=== PATIENT | male | born 1950 | race Caucasian/White ===

== ENCOUNTER 2019-08-29 09:13 | Outpatient (CLI) | payer MEDICARE, SELFPAY ==
--- NOTE | ~2019-08-29 | XR_ITS ---
XR lumbar spine 2-3V 08/29/2019 09:31 Indication: Low back pain Procedure: 4 views lumbar spine Comparison: 03/01/2013 Findings: There is disc narrowing at all lumbar levels. There is dextroscoliosis centered at L1. Ther e is moderate multilevel facet hypertrophy of the mid and lower lumbar spine. Pedicles intact. No kasey dence for spondylolisthesis. No acute fracture or traumatic malalignment. There is atherosclerosis of the aorta with fusiform aortic aneurysm measuring 3.5 cm. Impression: 1: Severe lumbar spondylosis with dextroscoliosis. 2: Fusiform abdominal aortic aneurysm measuring 3.5 cm AP dimension. Reviewed, dictated and finalized at location A. Impression: 1: Severe lumbar spondylosis with dextroscoliosis. 2: Fusiform abdominal aortic aneurysm measuring 3.5 cm AP dimension.
== END 2019-08-29 09:14 | disposition home or self-care (01) ==
LOC: ANHIMG 09:18
PROVIDERS: PCP Family Medicine; Visit Provider Family Medicine
DX: G89.29 Other chronic pain (principal); M54.40 Lumbago with sciatica, unspecified side; M47.816 Spondylosis without myelopathy or radiculopathy, lumbar region; M41.86 Other forms of scoliosis, lumbar region; I71.4 Abdominal aortic aneurysm, without rupture
CPT/HCPCS: 72100

== ENCOUNTER 2019-09-11 07:54 | Outpatient (CLI) | payer MEDICARE, SELFPAY ==
--- NOTE | ~2019-09-11 | US_ITS ---
EXAMINATION: US aorta DATE: 09/11/2019 09:09 INDICATION: Abdominal aortic aneurysm undergoing TECHNIQUE: Grayscale, color Doppler, and pulsed Doppler images of the aorta and common iliac arteries were obtained. COMPARISON: None. FINDINGS: The proximal aorta measures 2.9 cm AP. The mid aorta measures 2.8 cm. The distal aorta measures 3.2 c m tapering to 2.1 cm at the bifurcation. The right common iliac artery measures 10 mm. The left commo n iliac artery measures 9 mm. IMPRESSION: 1. Ectatic infrarenal abdominal aorta measuring up to 3.2 cm in maximal diameter. Reviewed, dictated and finalized at location A. IMPRESSION: 1. Ectatic infrarenal abdominal aorta measuring up to 3.2 cm in maximal diamete r.
== END 2019-09-11 07:55 | disposition home or self-care (01) ==
PROVIDERS: PCP Family Medicine; Visit Provider Internal Medicine Cardiovascular Disease
DX: I71.4 Abdominal aortic aneurysm, without rupture (principal)
CPT/HCPCS: 76775

== ENCOUNTER 2019-10-03 07:42 | Outpatient (CLI) | payer MEDICARE, SELFPAY ==
--- NOTE | ~2019-10-03 | MR_ITS ---
EXAMINATION: MR lumbar spine wo con DATE: 10/03/2019 08:58 INDICATION: Lumbago with sciatica, unspecified side. TECHNIQUE: Magnetic resonance imaging (MRI) of the lumbar spine was performed without intravenous con trast. Sequences included sagittal T2-weighted FSE, sagittal T2-weighted FS FSE, sagittal T1-weighted FSE, and axial T2-weighted FSE. COMPARISON: Lumbar spine MRI 04/04/2013 FINDINGS: There is 16 degrees dextroscoliosis of thoracic lumbar spine. There is 4 mm retrolisthesis of T12 on L1 and 3 mm retrolisthesis of L1 on L2 and L2 on L3. There is mild chronic anterior wedging of T10-L1 vertebral bodies with Schmorl's nodes. There is moderately decreased disc height at T12-L1 , severely decreased disc height at L1-L2, moderately decreased disc height at L2-L3 and L3-L4, and s everely decreased disc height at L4-L5. There is ligamentum flavum hypertrophy at the disc levels fro m L2-L3 through L4-L5. The distal spinal cord signal intensity is normal. The conus medullaris is at T12-L1. There is a 3.0 cm these remain aneurysm of infrarenal aorta. The following disc levels are sp ecifically discussed: T12-L1: The disc is bulging. There is moderate right and severe left facet joint osteoarthritis. Ther e is mild bilateral neural foraminal stenosis. There is mild central canal stenosis. L1-L2: The disc is bulging and has an annular fissure. There is severe bilateral facet joint osteoart hritis. There is moderate bilateral neural foraminal stenosis. There is moderate central canal stenos is. L2-L3: The disc is bulging and has an annular fissure. There is severe bilateral facet joint osteoart hritis. There is mild bilateral neural foraminal stenosis. There is mild central canal stenosis. L3-L4: The disc is bulging and has an annular fissure. There is severe bilateral facet joint osteoart hritis. There is moderate right and mild left neural foraminal stenosis. There is severe central arlene l stenosis. L4-L5: The disc is bulging and has an annular fissure. There is severe bilateral facet joint osteoart hritis. There is moderate bilateral neural foraminal stenosis. There is mild central canal stenosis. L5-S1: The disc is bulging. There is severe bilateral facet joint osteoarthritis. There is mild bilat eral neural foraminal stenosis. There is mild central canal stenosis. IMPRESSION: 1. Severe lumbar spondylosis, worsened from 04/04/2013. 2. Thoracolumbar dextroscoliosis. Reviewed, dictated and finalized at location A.
== END 2019-10-03 07:43 | disposition home or self-care (01) ==
PROVIDERS: PCP Family Medicine; Visit Provider Family Medicine
DX: G89.29 Other chronic pain (principal); M43.06 Spondylolysis, lumbar region; M54.40 Lumbago with sciatica, unspecified side; M47.896 Other spondylosis, lumbar region
CPT/HCPCS: 72148

== ENCOUNTER 2020-05-09 10:25 | Outpatient (CLI) | payer MEDICARE, SELFPAY ==
--- NOTE | ~2020-05-09 | US_ITS ---
EXAMINATION: US thyroid DATE: 05/09/2020 15:04 INDICATION: Thyroid nodule TECHNIQUE: Multiple ultrasound images of the thyroid were obtained. COMPARISON: None. FINDINGS: The right thyroid lobe measures 5.1 x 1.9 x 2.3 cm. The left thyroid lobe measures 2.6 x 1.8 x 1.5 c m. 1.4 cm predominantly solid wider than tall very hypoechoic nodule with smooth margins and echogen ic foci in the mid right thyroid lobe. (TI-RADS 5, highly suspicious , FNA if >=1.0 cm, annual follow up is >0.5 cm). Smaller similar appearing nodule measuring 9 mm in maximal diameter at the inferior r ight thyroid. There are a few additional 6 mm or smaller likely benign anechoic cystic nodules in bot h the left and right thyroid lobes. There is normal echotexture, echogenicity and vascular flow throu ghout the remainder of the thyroid gland. IMPRESSION: 1. Multinodular goiter. Recommend ultrasound-guided biopsy of the largest 1.4 cm TI RADS 5 right thyr oid nodule. Reviewed, dictated and finalized at location A. ENTING CELLARS RECEIVER IMPRESSION: 1. Multinodular goiter. Recommend ultrasound-guided biopsy of the largest 1.4 c m TI RADS 5 right thyroid nodule.
== END 2020-05-09 10:26 | disposition home or self-care (01) ==
PROVIDERS: PCP Family Medicine; Visit Provider Internal Medicine Cardiovascular Disease
DX: E04.2 Nontoxic multinodular goiter (principal)
CPT/HCPCS: 76536

== ENCOUNTER 2020-05-31 08:30 | Outpatient (CLI) | payer MEDICARE, SELFPAY ==
--- NOTE | ~2020-05-31 | CT_ITS ---
EXAMINATION: CT lung screening DATE: 05/31/2020 08:56 INDICATION: Personal history of nicotine dependence, prior smoker with 80 pack year history TECHNIQUE: Computed tomography (CT) of the chest was performed without intravenous contrast. The dose -length product (DLP) was 189.58 mGy-cm. Automated exposure control and iterative reconstruction tech [employer] were employed. COMPARISON: 04/04/2018 FINDINGS: There are tiny 1 to 2 mm nodules of the lungs. A 3 mm nodule is present in the right upper lobe on image 44. There is a 10 mm stable subpleural nodule of the left upper lobe. There is a 16 mm subsolid nodule of the right upper lobe on image 41 which previously measured 11 mm. There is mild em physema. No pleural effusion or pneumothorax is identified. No pathologically enlarged thoracic lymph nodes are identified. The heart size is normal. There are changes of coronary artery bypass grafting . A midline epigastric hernia containing fat is noted. There is moderate thoracic spondylosis. IMPRESSION: 1. Lung-RADS category 2: Benign appearance or behavior. Continue annual screening with noncontrast lo w-dose chest CT in 12 months. Reviewed, dictated and finalized at location A. RITY INTELLIGENCE ANALYST IMPRESSION: 1. Lung-RADS category 2: Benign appearance or behavior. Continue annual screeni ng with noncontrast low-dose chest CT in 12 months.
== END 2020-05-31 08:31 | disposition home or self-care (01) ==
PROVIDERS: PCP Family Medicine; Visit Provider Internal Medicine Pulmonary Disease
DX: Z12.2 Encounter for screening for malignant neoplasm of respiratory organs (principal); Z87.891 Personal history of nicotine dependence
CPT/HCPCS: 71271

== ENCOUNTER 2020-05-31 12:54 | Outpatient (CLI) | payer MEDICARE, SELFPAY ==
--- NOTE | ~2020-05-31 | US_ITS ---
EXAMINATION: US FNA w image guidance DATE: 05/31/2020 14:03 INDICATION: Nontoxic multinodular goiter. TECHNIQUE: The procedure and its benefits and risks were discussed with the patient. Risks specifically discusse d included bleeding. The patient verbalized understanding of the risks and agreed to proceed. The nec k was prepped and draped in the usual sterile manner. 1% lidocaine was used for local anesthesia. 5 passes were made with a 25G needle into the lesion under ultrasound guidance. There were no immedia te complications. FINDINGS: Grayscale ultrasound images demonstrate needles advanced into a 14 mm nodule in right thyroid lobe fo r biopsy. IMPRESSION: 1. Ultrasound-guided fine needle aspiration of a right thyroid nodule. Reviewed, dictated and finalized at location A. TOR HELPER
== END 2020-05-31 12:55 | disposition home or self-care (01) ==
PROVIDERS: PCP Family Medicine; Visit Provider Family Medicine
DX: E04.2 Nontoxic multinodular goiter (principal)
CPT/HCPCS: 10005; 71271; 88173; 88305; 88307

== ENCOUNTER 2021-04-18 08:01 | Outpatient (CLI) | payer MEDICARE, SELFPAY ==
--- NOTE | ~2021-04-18 | CT_ITS ---
EXAMINATION: CT abdomen pelvis wo con EXAM DATE: 04/18/2021 08:22 INDICATION: K43.2 - Incisional hernia without obstruction or gangrene. TECHNIQUE: Spiral CT of the abdomen and pelvis was performed without contrast. Axial, coronal and s agittal images of the abdomen and pelvis were reviewed. The dose-length product (DLP) for this exami nation was 978.48 mGy-cm. The exposure was tailored according to patient size (auto mA exposure cont rol), and iterative reconstruction (ASIR) was used as additional dose reduction technique. There is no prior study for comparison. FINDINGS: The liver, spleen, adrenal glands and pancreas are unremarkable. Gallbladder is unremarka ble. No biliary obstruction. Bilateral renal hilar calcifications, arterial sclerosis. There is punc patricio 1 mm left inferior calyceal stone. No ureteral stones or hydronephrosis. There is moderate prost atomegaly. There is moderate-sized fat-containing abdominal hernia just below the xiphoid process. There is lar ge left inguinal fat-containing hernia, moderate-sized right inguinal fat-containing hernia. Both of these appear to have direct and indirect components. Small umbilical fat-containing hernia. Some diff use bladder wall thickening, could indicate chronic cystitis. Acute cystitis not excludable. There i s no retroperitoneal or pelvic lymphadenopathy. There is moderate scattered arteriosclerotic diseas e. Mildly aneurysmal mid abdominal aorta at 3.4 cm. The appendix is normal. There is moderate sigmoid predominant colonic diverticulosis. There is no ad jacent inflammatory change to suggest diverticulitis. The stomach and small bowel are unremarkable. There is moderate amount of colonic stool. No free intraperitoneal gas. The heart is normal in si ze. There are no pericardial or pleural effusions. The lung bases are unremarkable. Spondylosis, s uspect severe facet arthropathy, central canal stenosis L3-4 and L4-5, moderate to severe at L1-2 and L2-3 with L2-3 gas-filled synovial cyst from the left facet joint. Mild to moderate lumbar scoliosi s. IMPRESSION: 1. Fat-containing subxiphoid, umbilical, bilateral inguinal hernias. 2. Mildly aneurysmal mid abdominal aorta. 3. Colonic diverticulosis. 4. Advanced lumbar spondylosis. Reviewed, dictated and finalized at location A. CLE OPERATOR
== END 2021-04-18 08:02 ==
PROVIDERS: PCP Family Medicine; Visit Provider Surgery
DX: K43.2 Incisional hernia without obstruction or gangrene (principal); K42.9 Umbilical hernia without obstruction or gangrene; K40.20 Bilateral inguinal hernia, without obstruction or gangrene, not specified as recurrent; I71.4 Abdominal aortic aneurysm, without rupture; K57.90 Diverticulosis of intestine, part unspecified, without perforation or abscess without bleeding; M47.816 Spondylosis without myelopathy or radiculopathy, lumbar region
CPT/HCPCS: 74176

== ENCOUNTER 2021-05-29 10:20 | Outpatient (CLI) | payer MEDICARE, SELFPAY ==
--- NOTE | ~2021-05-29 | US_ITS ---
EXAMINATION: US renal BI EXAM DATE: 05/29/2021 10:44 INDICATION: Chronic Kidney Disease Stage 3B TECHNIQUE: Multiple grayscale and Doppler images of the kidneys were obtained (by a technologist who performed the scan) and subsequently reviewed. There is no prior study for comparison. FINDINGS: Right kidney: There is normal contour and echogenicity. It measures 10.7 x 4.5 x 5.0 centimeters. Th ere is a 1.7 cm cyst. There is no hydronephrosis. Left kidney: There is normal contour and echogenicity. It measures 9.8 x 4.4 x 5.6 centimeters. The re are no focal renal lesions identified. There is no hydronephrosis. Bladder unremarkable. Mild prostatomegaly. IMPRESSION: Small right renal cyst. Mild prostatomegaly. Reviewed, dictated and finalized at location A. OW SHADE INSTALLER
== END 2021-05-29 10:21 | disposition home or self-care (01) ==
LOC: ANHIMG 10:22
PROVIDERS: PCP Family Medicine; Visit Provider Internal Medicine Nephrology
DX: N18.32 Chronic kidney disease, stage 3b (principal); N28.1 Cyst of kidney, acquired; N40.0 Benign prostatic hyperplasia without lower urinary tract symptoms
CPT/HCPCS: 76775

== ENCOUNTER 2021-06-24 10:54 | Outpatient (CLI) | payer MEDICARE, SELFPAY ==
--- NOTE | ~2021-06-24 | CT_ITS ---
EXAMINATION: CT lung screening EXAM DATE: 06/24/2021 11:12 INDICATION: Z87.891 - Personal history of nicotine dependence TECHNIQUE: Spiral low dose CT of the chest without contrast. Axial, coronal and sagittal images were reviewed. The dose-length product (DLP) for this examination was 180.66 mGy-cm. The exposure was t ailored according to patient size (auto mA exposure control), and iterative reconstruction (ASIR) was used as additional dose reduction technique. Comparison is made to prior examination from 05/31/2020. FINDINGS: Several small apical opacities most likely postinfectious, largest solid component about 5 mm. No change in this compared to prior study. Mild emphysema. Tracheobronchial tree is patent. The re is no mediastinal, hilar or axillary lymphadenopathy. There are no pleural or pericardial effusi ons. There is no pneumothorax. Heart normal in size. There are sternotomy wires, and cardiac/co ronary surgical changes. Correlate with prior history. Upper abdomen is unremarkable. There is tho racic spondylosis without osteoblastic or osteolytic lesions identified. IMPRESSION: Lung-RADS category 2, benign appearance or behavior (<1% chance of malignancy); recommend continued LDCT screening in 1 year. Reviewed, dictated and finalized at location A.
== END 2021-06-24 10:55 | disposition home or self-care (01) ==
LOC: ANHIMG 10:54
PROVIDERS: PCP Family Medicine; Visit Provider Internal Medicine Pulmonary Disease
DX: Z12.2 Encounter for screening for malignant neoplasm of respiratory organs (principal); Z87.891 Personal history of nicotine dependence
CPT/HCPCS: 71271

== ENCOUNTER 2022-04-14 08:58 | Outpatient (CLI) | payer MEDICARE, SELFPAY ==
[2022-04-14 20:01] LABS: Alanine Aminotransferase 29 U/L (6-50); Albumin Level 4.3 g/dL (3.5-5.1); Alkaline Phosphatase 40 U/L (38-126); Anion Gap 4 mmol/L (8-16); Aspartate Amino Transferase 39 U/L (17-59); Bilirubin,Total 0.8 mg/dL (0.2-1.3); Blood Urea Nitrogen 26 mg/dL (9-20); Calcium 9.6 mg/dL (8.4-10.2); Carbon Dioxide 25 mmol/L (22-30); Chloride 106 mmol/L (98-107); Estimated Glomerular Filt Rate 46; Glucose 109 mg/dL (65-110); Potassium 4.6 mmol/L (3.4-5.0); Sodium 135 mmol/L (137-145)
[2022-04-14 20:25] LABS: Hemoglobin A1C 5.6 % (<5.7)
== END 2022-04-14 08:59 | disposition home or self-care (01) ==
LOC: ANHGOSHLAB 08:59
PROVIDERS: PCP Family Medicine; Visit Provider Family Medicine
DX: I10 Essential (primary) hypertension (principal); R73.03 Prediabetes; E78.5 Hyperlipidemia, unspecified
CPT/HCPCS: 36415; 80053; 83036

== ENCOUNTER 2022-04-17 08:15 | Outpatient (CLI) | payer MEDICARE, SELFPAY ==
--- NOTE | ~2022-04-17 | US_ITS ---
EXAMINATION: US art doppler w press LE BI DATE: 04/17/2022 08:54 INDICATION: Peripheral vascular disease TECHNIQUE: Segmental pressures and plethysmographic and Doppler waveforms of the brachial and lower e xtremity arteries were obtained. COMPARISON: None. FINDINGS: Right and left brachial artery pressures of 120 mm Hg and 132 mm Hg, respectively, are concordant (no rmal difference <= 30 mmHg). The right and left high-thigh pressure indices are 1.08 and 1.22, respec tively (normal > 1.2). The right ankle-brachial index (PAVAN) is 0.74 (normal >= 0.9-1). The right great toe-brachial index (T BI) is 0.65 (normal >= 0.6-0.8). The right lower extremity segmental pressure gradients are increased between the right high and low thigh (normal gradients <= 20-30 mmHg between adjacent levels on the same leg or the same levels on the two legs). Arterial waveforms are biphasic with brisk systolic ups trokes throughout the arteries of the right lower limb. The left PAVAN is 0.73. The left TBI is 0.71. The left lower extremity segmental pressure gradients are increased between the left above and [id number]-[id number]-cuct popliteal arteries. Arterial waveforms are bipha sic with brisk systolic upstrokes throughout the arteries of the left lower limb. IMPRESSION: 1. Arterial occlusive disease to bilateral lower limbs with mild to moderately decreased bilateral AB Is and borderline bilateral TBIs. Reviewed, dictated and finalized at location B. Y LEVEL FINANCE IMPRESSION: 1. Arterial occlusive disease to bilateral lower limbs with mild to moderately decreased bilateral ABIs and borderline bilateral TBIs.
== END 2022-04-17 08:16 | disposition home or self-care (01) ==
PROVIDERS: PCP Family Medicine; Visit Provider Family Medicine
DX: I73.9 Peripheral vascular disease, unspecified (principal)
CPT/HCPCS: 93923

== ENCOUNTER 2022-10-21 10:33 | Outpatient (CLI) | payer MEDICARE, SELFPAY ==
--- NOTE | ~2022-10-21 | CT_ITS ---
CT Scan of the Chest without Contrast: Clinical Indication: Lung cancer screening, personal history of nicotine dependence Technique: Contiguous sections were acquired throughout the chest without intravenous contrast. Dose reduction technique was used on this scan by utilizing automated exposure control and iterative recon struction technique. The dose-length product (DLP) was 133.61 mGy-cm. COMPARISON: 06/24/2021 and 05/31/2020 Findings: There is no evidence of any significant mediastinal, hilar or axillary lymphadenopathy. Atherosclerot ic calcifications of the aorta and coronary vessels are present. There is no evidence of pleural or pericardial effusion. There are several focal scattered groundglass/semisolid opacities which are essentially stable from p rior exam, most predominantly in the right upper lobe (axial images 43 and 44), left upper lobe (axia l image 39), and left lower lobe (axial image 89). Images through the upper abdomen reveal no abnormalities. Impression: Lung RADS 2: Benign appearance. 12 month follow-up screening CT advised. Reviewed, dictated and finalized at location M. Impression: Lung RADS 2: Benign appearance. 12 month follow-up screening CT advised.
== END 2022-10-21 10:34 | disposition home or self-care (01) ==
PROVIDERS: PCP Family Medicine; Visit Provider Family Medicine
DX: Z12.2 Encounter for screening for malignant neoplasm of respiratory organs (principal); Z87.891 Personal history of nicotine dependence
CPT/HCPCS: 71271

== ENCOUNTER → 2022-11-27 10:15 | Outpatient (CLI) | payer MEDICARE, SELFPAY ==
--- NOTE | ~2022-11-27 | MR_ITS ---
MRI of the lumbar spine Clinical History: Back pain Technique: Axial T2-weighted images, and sagittal T1-weighted, T2-weighted, and T2 fat-sat images wer e acquired. COMPARISON: 10/03/2019 Findings: There is no acute fracture in the lumbar spine. Stable grade 1 retrolisthesis of L2 over L3 , measuring approximately 3 mm. There is mild dextroscoliosis of the lumbar spine. At L1-L2, there is severe degenerative disc narrowing. There is mild disc bulge with advanced facet a rthropathy. There is minimal central canal stenosis. There is severe bilateral neural foraminal narro wing. At L2-L3, there is severe degenerative disc narrowing. There is diffuse disc bulge with superimposed left paracentral/left foraminal disc herniation. There is moderate facet arthropathy. These factors a ll contribute to mild to moderate thecal sac compression at this level. There is severe left neural f oraminal narrowing and moderate to severe right neural foraminal narrowing. At L3-L4, there is advanced degenerative disc narrowing. Disc bulge and severe facet arthropathy resu lt in severe spinal canal stenosis/thecal sac compression. There is severe right neural foraminal chrissie rowing, and moderate to severe left neural foraminal narrowing. At L4-L5, there is advanced degenerative disc narrowing. Disc bulge and advanced facet arthropathy re sult in moderate central canal stenosis. There is severe bilateral neural foraminal narrowing, right worse than left. At L5-S1, there is severe facet arthropathy without significant disc bulge. No central canal stenosis . There is moderate right neural foraminal narrowing. Paravertebral soft tissues are unremarkable. Impression: Severe degenerative spondylosis, as detailed above. There is severe central canal stenosis at L3-L4, with moderate central canal stenosis at additional levels. There is multilevel neural foraminal narro wing. There is a left paracentral disc herniation at L2-L3, which probably impinges left-sided nerve root. Reviewed, dictated and finalized at [facility] M. Impression: Severe degenerative spondylosis, as detailed above. There is severe central can al stenosis at L3-L4, with moderate central canal stenosis at additional levels . There is multilevel neural foraminal narrowing. There is a left paracentral d isc herniation at L2-L3, which probably impinges left-sided nerve root.
== END ==
PROVIDERS: PCP Family Medicine; Visit Provider Nurse Practitioner Family
DX: M43.06 Spondylolysis, lumbar region (principal); M48.061 Spinal stenosis, lumbar region without neurogenic claudication; M51.26 Other intervertebral disc displacement, lumbar region
CPT/HCPCS: 72148

== ENCOUNTER 2022-12-28 15:29 | Outpatient (CLI) | payer MEDICARE, SELFPAY ==
--- NOTE | ~2022-12-28 | US_ITS ---
EXAMINATION: US carotid duplex BI DATE: 12/28/2022 16:19 INDICATION: Hypertension. Dizziness. TECHNIQUE: Grayscale, color Doppler, and pulsed Doppler images of the cervical carotid arteries were obtained. The degree of vessel stenosis is placed in one of the following categories: normal, <50%, 5 0-69%, >=70% but less than near-occlusion, near-occlusion, or total occlusion. Note that percent sten osis relative to normal distal artery lumen diameter is indirectly measured from velocity measurement s as described by Bruce, et al. Radiology 2003; 229:340-346. Notes: Normal: Peak systolic velocity <125 centimeters/sec and no plaque <50%. Peak systolic velocity <125 ( EDV <40; ICA/CCA PSV ratio <2.0; used these factors only a tandem lesions or low cardiac output or co ntralateral disease) 50-69 %: PSV 125-230 (EDV 40-100; ratio 2-4) >= 70% but less than near occlusion: PSV greater than 230 (EDV > 100; ratio> 4.0) Near Occlusion: PSV that is variable; markedly narrowed lumen Occlusion: Absent flow on color/spectral Doppler and no lumen on batista scale. COMPARISON: None. FINDINGS: RIGHT: The right common carotid artery (CCA) peak systolic velocity (PSV) is 164 cm/s. The right internal ca rotid artery (ICA) PSV is 120 cm/s. The right ICA end-diastolic velocity (EDV) is 36 cm/s. The right ICA/CCA PSV ratio is 0.7. The external carotid artery (ECA) PSV is 125 cm/s. There is antegrade flow in the right vertebral artery. LEFT: The left CCA PSV is 82 cm/s. The left ICA PSV is 74 cm/s. The left ICA EDV is 30 cm/s. The left ICA/ CCA PSV ratio is 0.9. The ECA PSV is 101 cm/s. There is antegrade flow in the left vertebral artery. IMPRESSION: 1. Less than 50% stenosis in the right internal carotid artery by sonographic criteria. 2. Less than 50% stenosis in the left internal carotid artery by sonographic criteria. Reviewed, dictated and finalized at location B. IMPRESSION: 1. Less than 50% stenosis in the right internal carotid artery by sonographic juliane hartley. 2. Less than 50% stenosis in the left internal carotid artery by sonographic bruce don.
== END 2022-12-28 15:30 | disposition home or self-care (01) ==
PROVIDERS: PCP Family Medicine; Visit Provider Internal Medicine Cardiovascular Disease
DX: I73.9 Peripheral vascular disease, unspecified (principal); I25.10 Atherosclerotic heart disease of native coronary artery without angina pectoris; I10 Essential (primary) hypertension; E78.5 Hyperlipidemia, unspecified; R42 Dizziness and giddiness; Z87.891 Personal history of nicotine dependence; I65.23 Occlusion and stenosis of bilateral carotid arteries
CPT/HCPCS: 93880

== ENCOUNTER 2023-04-28 11:30 | Outpatient (CLI) | payer MEDICARE, SELFPAY ==
[2023-04-28 18:04] LABS: Alanine Aminotransferase 27 U/L (6-50); Albumin Level 4.2 g/dL (3.5-5.1); Alkaline Phosphatase 48 U/L (38-126); Anion Gap 9 mmol/L (8-16); Aspartate Amino Transferase 47 U/L (17-59); Bilirubin,Total 1.1 mg/dL (0.2-1.3); Blood Urea Nitrogen 33 mg/dL (9-20); Calcium 10.4 mg/dL (8.4-10.2); Carbon Dioxide 24 mmol/L (22-30); Chloride 107 mmol/L (98-107); Estimated Glomerular Filt Rate 50; Glucose 106 mg/dL (65-110); Potassium 4.8 mmol/L (3.4-5.0); Sodium 140 mmol/L (137-145)
[2023-04-28 19:10] LABS: Hemoglobin A1C 6.1 % (<5.7)
== END 2023-04-28 11:31 | disposition home or self-care (01) ==
LOC: ANHGOSHLAB 11:31
PROVIDERS: PCP Family Medicine; Visit Provider Family Medicine
DX: R73.03 Prediabetes (principal); I10 Essential (primary) hypertension
CPT/HCPCS: 36415; 80053; 83036

== ENCOUNTER 2023-05-11 10:59 | Outpatient (CLI) | payer MEDICARE, SELFPAY ==
--- NOTE | ~2023-05-11 | US_ITS ---
EXAMINATION: US thyroid DATE: 05/11/2023 11:55 INDICATION: Nontoxic multinodular goiter. TECHNIQUE: Multiple ultrasound images of the thyroid were obtained. COMPARISON: Ultrasound 05/09/2020, 05/31/2020 FINDINGS: The right thyroid lobe measures 5.3 x 1.6 x 2.1 cm. The left thyroid lobe measures 4.4 x 1.6 x 1.6 c m. There are subcentimeter nodules in left thyroid lobe. In the right thyroid lobe, there is a 10 mm mixed cystic and solid, hypoechoic, wider than tall nodule with smooth margin without echogenic foci (TI-RADS TR3). In the right thyroid lobe, there is a 12 mm mixed cystic and solid, hypoechoic, wider than tall nodule with smooth margin without echogenic foci (TR3). In the right thyroid lobe, there i s an 8 mm almost entirely cystic nodule (TR1). IMPRESSION: 1. Small thyroid nodules, likely not clinically significant. No follow-up is needed. Reviewed, dictated and finalized at location E. SIFICATION PLANT OPERATOR IMPRESSION: 1. Small thyroid nodules, likely not clinically significant. No follow-up is ne eded.
== END 2023-05-11 11:00 | disposition home or self-care (01) ==
PROVIDERS: PCP Family Medicine; Visit Provider Family Medicine
DX: E04.2 Nontoxic multinodular goiter (principal)
CPT/HCPCS: 76536

== ENCOUNTER 2023-08-17 06:56 | Observation (INO) | payer MEDICARE, SELFPAY ==
[2023-08-17] VITALS (19 sets, daily range): BP systolic 131–168; BP diastolic 55–90; PULSE 48–69; RESP 14–21; TEMP 36.5–36.8; O2SAT 94–100; BMI 26.9
--- NOTE | ~2023-08-17 | NM_ITS ---
EXAMINATION: NM smooth stress w perfusion DATE: 08/18/2023 12:50 INDICATION: Chest pain. TECHNIQUE: Rest images were obtained following intravenous administration of 9 mCi Tc99m tetrofosmin (Myoview). The patient was infused intravenously with Lexiscan (regadenoson). Then, 28 mCi Tc99m tetr ofosmin (Myoview) was administered intravenously, and stress images were obtained. Data was reconstru cted into short axis and horizontal and vertical long axis SPECT images. Gated SPECT images were also obtained. COMPARISON: Chest CT 11/17/2023 FINDINGS: There is a small, mild, fixed perfusion defect involving apical lateral segment of left batool tricle, consistent with infarct. No reversible component to suggest ischemia. There is no segmental wall motion abnormality. Left ventricular ejection fraction measures 67%. IMPRESSION: 1. Small area of mild infarct involving apical lateral segment of left ventricle. Subendocardial fat on the CT suggests this finding is old. 2. Normal left ventricular ejection fraction measuring 67%. Reviewed, dictated and finalized at location A. IMPRESSION: 1. Small area of mild infarct involving apical lateral segment of left ventricl e. Subendocardial fat on the CT suggests this finding is old. 2. Normal left ventricular ejection fraction measuring 67%.
--- NOTE | ~2023-08-17 | XR_ITS ---
EXAMINATION: XR chest 2V DATE: 08/17/2023 07:17 INDICATION: Chest pain. TECHNIQUE: Frontal and lateral views of the chest were obtained. COMPARISON: Chest 2 views 04/26/12 FINDINGS: There is mild atelectasis in right lower lung zone. No pleural effusion or pneumothorax. Ca rdiomegaly is noted. Median sternotomy wires and mediastinal surgical clips are seen, likely from [place] or coronary artery bypass grafting. There is mild chronic anterior wedging of multiple vertebral bodi es. IMPRESSION: 1. Mild atelectasis in right lower lung zone. 2. Cardiomegaly. Reviewed, dictated and finalized at location A.
--- NOTE | ~2023-08-17 | CT_ITS ---
EXAMINATION: CTA chest PE abdomen pel DATE: 08/17/2023 08:39 INDICATION: Chest pain. TECHNIQUE: Computed tomography angiography (CTA) of the chest was performed with 100 mL Omnipaque-350 intravenous contrast timed to evaluate the pulmonary arteries. Coronal maximum intensity projection 3D-reconstructions were created by the technologist. Computed tomography (CT) of the abdomen and pelv is was performed with intravenous contrast. Automated exposure control and iterative reconstruction t echnique were employed. The dose-length product was 1215.68 mGy-cm. COMPARISON: Chest CT 10/21/2022 FINDINGS: CTA chest: The lungs demonstrate mild atelectasis. There are mild airspace opacities in posterior seg ment right upper lobe. No pleural effusion. Cardiomegaly is noted. There are coronary artery calcific ations. No pericardial effusion. There is no pulmonary embolus. There is calcified atherosclerosis of the aorta and many of the other arteries. CT abdomen and pelvis: There is a 6 mm cyst in the liver. The gallbladder and spleen are normal. Ther e are calcifications in the pancreas, consistent with chronic pancreatitis. The adrenal glands are no rmal. There is cortical thinning of the kidneys. There are cysts in right kidney measuring up to 15 m m. There are 2 mm and 3 mm stones in left kidney. The prostate is moderately enlarged. There are bila teral inguinal hernias containing fat. There is diverticulosis of the colon without evidence of diver ticulitis. There are foci of old fat necrosis adjacent to the sigmoid colon. The appendix is normal. There are no dilated loops of bowel. There is a 3.1 cm fusiform aneurysm of infrarenal aorta. There a re no pathologically enlarged lymph nodes. There is no free intraperitoneal fluid. There is thoracolu mbar dextroscoliosis and severe spondylosis. IMPRESSION: 1. No pulmonary embolus. 2. Mild airspace opacities in posterior segment right upper lobe, consistent with atelectasis versus pneumonia. 3. Bilateral inguinal hernias containing fat. 4. 3.1 cm fusiform aneurysm of infrarenal aorta. Reviewed, dictated and finalized at location A. IMPRESSION: 1. No pulmonary embolus. 2. Mild airspace opacities in posterior segment right upper lobe, consistent wi th atelectasis versus pneumonia. 3. Bilateral inguinal hernias containing fat. 4. 3.1 cm fusiform aneurysm of infrarenal aorta.
--- NOTE | 2023-08-17 06:57 | ECG_ITS ---
SEE SCANNED COPY FOR CONFIRMED REPORT MTDD
--- NOTE | 2023-08-17 07:03 | ECG_ITS ---
SEE SCANNED COPY FOR CONFIRMED REPORT MTDD
[2023-08-17] MEDS: ASPIRIN 81 MG CHEWABLE TABLET 324 MG PO (07:06)
[2023-08-17 07:13] LABS: Basophils Absolute Auto 0.1 K/mm3 (0.0-0.1); Basophils Percent Auto 0.6 % (0.2-1.2); Eosinophils Absolute Auto 0.2 K/mm3 (0-0.3); Eosinophils Percent Auto 2.2 % (0-4.4); Hematocrit 48.1 % (42.0-52.0); Hemoglobin 15.6 g/dL (14.0-18.0); Immature Granulocyte Absolute 0.04 K/mm3 (0.00-0.031); Immature Granulocyte Percent A 0.5 % (0-0.5); Lymphocytes Absolute Auto 2.22 K/mm3 (0.9-3.2); Lymphocytes Percent Auto 27.7 % (18.3-44.2); Mean Corpuscular HGB Conc 32.4 g/dl (32-36); Mean Corpuscular Hemoglobin 30.9 pg (26-34); Mean Corpuscular Volume 95.2 fl (80-100); Mean Platelet Volume 10.7 fl (7.4-10.4); Monocytes Percent Auto 12.6 % (2.6-8.5); Neutrophils Absolute Auto 4.5 K/mm3 (1.3-6.7); Neutrophils Percent Auto 56.4 % (45.5-73.1); Platelet Count Result 207 k/mm3 (150-375); Red Blood Count 5.05 M/mm3 (4.6-6.20); Red Cell Distribution Width 13.2 % (11.5-14.5)
--- NOTE | 2023-08-17 07:22 | ED.GENADULT ---
HPI - General Adult General Chief complaint: Chest Pain Stated complaint: chest tightness Time Seen by Provider: 08/17/23 06:58 History of Present Illness HPI narrative: 73-year-old male presents emergency department for evaluation for intermittent chest pain that bothers him when he is lying down flat. Patient does have a history of CABG that was done in 2012 at [place]. Patient states his most recent stress test was about 5 years ago. Patient does follow-up with Dr. Garvin. patient states that he has not been having pain with exertion and is not have pain when he works out on his elliptical but does have pain that has been recurring at nighttime after lying down flat for a few minutes. Patient states he did have some pain at approximately 530 this morning and this did resolve when he sits up. Patient describes the pain as substernal radiated to his left arm and to his neck. On arrival emergency department patient denies any current chest pain chest tightness or shortness of breath. Patient states the reason he came today to be evaluated for the recurrent pain is because his girlfriend convinced him to be evaluated. Related Data Home Medications Medication Instructions Recorded Confirmed aspirin 81 mg tablet,delayed 81 mg PO DAILY 08/28/19 08/17/23 release (Enteric Coated Aspirin) isosorbide mononitrate 60 mg 60 mg PO DAILY 08/28/19 08/17/23 tablet,extended release 24 hr ranolazine 500 mg tablet,extended 500 mg PO Q12H 08/28/19 08/17/23 release,12 hr atorvastatin 80 mg tablet 80 mg PO DAILY 08/17/23 08/17/23 Allergies Allergy/AdvReac Type Severity Reaction Status Date / Time No Known Allergies Allergy Verified 08/17/23 09:36 Review of Systems Review of Systems: All systems reviewed & are unremarkable except as noted in HPI and below PMFSH Past Medical History Medical History (Updated 08/17/23 @ 13:05 by Bella Brock PA-C) Abdominal aortic aneurysm without rupture Chronic kidney disease, stage 3 Chronic low back pain Coronary artery disease COVID-19 (04/2020) Dyslipidemia History of tobacco abuse Hypertension Multinodular goiter Peripheral arterial disease Prediabetes Stenosis of right carotid artery Surgical History Surgical History (Updated 08/17/23 @ 13:10 by Bella Brock PA-C) History of arthroscopy of right knee History of cardiac catheterization History of coronary artery bypass graft (05/02/12) GUERIN to LAD, SVG to RPDA, SVG to diagonal, radial to OM History of inguinal hernia repair History of wisdom tooth extraction Family History Family History Father Family history of alcoholism Other Family history of lung cancer Social History Social History (Updated 08/17/23 @ 13:06 by Bella Brock PA-C) Social History: Surrogate medical decision maker: Code status: Full code. Smoking packs per day: 2 Smoking cigarettes per day: 40.0 Years smoked: 30 Smoking pack-years: 60.00 Smoking status: Former smoker Smoking end date: 04/27/12 Alcohol intake: never Alcohol use details: consumes 1 beer every couple months Substance use: current Substance use type: marijuana Last use: 08/16/23 Do You Feel Safe in your Home?: Yes Lack of Transportation: No Lack of Food: Never True Current Housing: I Have Housing Concerned About Future Housing: No Difficulty Paying Gas/Electric Bills: No Difficulty Paying for Meds: No Currently Unemployed: No Education: Bachelor's Degree Difficulty w/ Childcare or Family Care: No Living arrangements: alone Occupation/Education: retired Additional occupation/education comments: Retired retail loss prevention investigator for the [employer] Spiritual care concerns: No Agree to blood products: Yes Exam Narrative: APPEARANCE: Well appearing, no pain, no distress, well-nourished. HEAD: normocephalic, atraumatic. EYES: PERRLA/EOMI, conjunctivae clear.
[2023-08-17] MEDS: PANTOPRAZOLE SODIUM IV 40 MG VIAL IV PUSH (07:40)
--- NOTE | 2023-08-17 07:45 | ECG_ITS ---
SEE SCANNED COPY FOR CONFIRMED REPORT MTDD
[2023-08-17 08:12] LABS: Alanine Aminotransferase 27 U/L (6-50); Albumin Level 4.2 g/dL (3.5-5.1); Alkaline Phosphatase 54 U/L (38-126); Anion Gap 9 mmol/L (4-12); Aspartate Amino Transferase 38 U/L (17-59); Bilirubin,Total 0.9 mg/dL (0.2-1.3); Blood Urea Nitrogen 35 mg/dL (9-20); Calcium 9.8 mg/dL (8.4-10.2); Carbon Dioxide 19 mmol/L (22-30); Chloride 110 mmol/L (98-107); Estimated CRCL calculation 38 ml/min; Estimated Glomerular Filt Rate 43; Glucose 116 mg/dL (65-110); Lipase 337 U/L (23-300); Sodium 138 mmol/L (137-145)
[2023-08-17 08:22] LABS: INR 1.1; Prothrombin Time 14.5 Seconds (11.1-14.7)
[2023-08-17 08:23] LABS: Partial Thromboplastin Time 29.1 Seconds (22.3-36.8)
[2023-08-17 08:27] LABS: Troponin I 0.104 ng/mL (0.000-0.034)
--- NOTE | 2023-08-17 10:02 | ECG_ITS ---
SEE SCANNED COPY FOR CONFIRMED REPORT MTDD
[2023-08-17] MEDS: HEPARIN SODIUM 5,000 UNITS/ML VIAL 4000 UNITS IV PUSH (10:13)
[2023-08-17] MEDS: HEPARIN SOD/D5W 100 UNITS/ML 25,000 UNITS/250 ML BAG 10 UNITS IV CONT (10:13)
[2023-08-17 10:29] LABS: Troponin I 0.129 ng/mL (0.000-0.034)
--- NOTE | 2023-08-17 11:16 | ADMGEN ---
This patient, Chance Ramirez, was admitted to IMU Room 203-01. Patient/family oriented to hospital policies and general routines including ID bracelet, bed and alarms, visiting hours, pain management, procedures, bathroom and other care routines, personal items, smoking policy, room service/diet, and visiting hours. Information on how to activate the Rapid Response Team has been discussed. Patient/Family are encouraged to report perceived risks to care and to ask questions if they do not understand what they are told or what they should do.
--- NOTE | 2023-08-17 11:42 | PM.CNCAR ---
Assessment and Plan Assessment and plan (1) Chest pain: Code(s): R07.9 - Chest pain, unspecified Status: Acute Assessment and Plan: His chest pain is atypical -- only occurs when laying down at night, no association with exertion. Troponins are mildly elevated but flat thus far -- no prior baseline level for comparison; does have CKD. Third tropoin level pending at this time. If his troponins remain flat, then will stop Heparin drip and plan for Lexiscan in the AM. Patient to be NPO at midnight. (2) Elevated troponin: Code(s): R79.89 - Other specified abnormal findings of blood chemistry Status: Acute Assessment and Plan: As above. (3) CAD in [place] artery: Code(s): I25.10 - Atherosclerotic heart disease of [place] coronary artery without angina pectoris Status: Acute Assessment and Plan: Continue ASA, statin, home antianginal regimen. (4) Essential (primary) hypertension: Code(s): I10 - Essential (primary) hypertension Status: Acute Assessment and Plan: Stable, continue home antihypertensives (5) CKD (chronic kidney disease) stage 3, GFR 30-59 ml/min: Qualifiers: Chronic kidney disease stage 3 subtype: stage 3a (GFR 45-59) Qualified Code(s): N18.31 - Chronic kidney disease, stage 3a Code(s): N18.3 - Chronic kidney disease, stage 3 (moderate) Status: Acute Assessment and Plan: At baseline. (6) Dyslipidemia: Code(s): E78.5 - Hyperlipidemia, unspecified Status: Acute Assessment and Plan: Continue high intensity statin. (7) Hx of CABG: Code(s): Z95.1 - Presence of aortocoronary bypass graft Status: Acute Assessment and Plan: As above. (8) AAA (abdominal aortic aneurysm) without rupture: Qualifiers: Abdominal aorta location: infrarenal aorta Qualified Code(s): I71.43 - Infrarenal abdominal aortic aneurysm, without rupture Code(s): I71.4 - Abdominal aortic aneurysm, without rupture Status: Acute Assessment and Plan: Stable. Continue ASA, statin, aggressive risk factor modification. Follows with Vascular Surgery as an outpatient. (9) Peripheral arterial disease: Code(s): I73.9 - Peripheral vascular disease, unspecified Status: Acute Assessment and Plan: Stable. Continue ASA, statin, aggressive risk factor modification. Follows with Vascular Surgery as an outpatient. 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 Patient presents to [place] ER with chest pain that has been occurring for the past 1 week. Only occurs when laying down to sleep at night. Feels substernal chest pressure with radiation to jaw, bilateral arm pain that begins right at the elbow and radiates up to the shoulder. Pain lasts for about 30 minutes and resolves after sitting up in bed. This is not the same type of pain he had when he had his ID and CABG in 2012. No exertional chest pain or other symptoms. He does the elliptical for 20 minutes every day and feels well with that. No chest pain after eating meals. Does not eat before going to bed at night (eats dinner around 2-3PM). ER workup shows initial troponin of 0.104, 0.129. Lipase elevated at 337. CXR with mild atelectasis in the right lower lung zone, cardiomegaly. Given elevated lipase, CTA C/A/P was obtained which showed no PE, mild airspace opacities in the posterior segment of right upper lobe, bilateral inguinal hernias containing fat, 3.1 fusiform aneurysm of infrarenal
[2023-08-17 12:56] LABS: Cholesterol 122 mg/dL (0-200); HDL Direct 41 mg/dL; Triglycerides 115 mg/dL (<150)
--- NOTE | 2023-08-17 13:01 | PM.IMHP ---
H&P: HPI History of Present Illness Date/Time: 08/17/23 13:01 Chief Complaint: Chest pain. Narrative: This is a very pleasant 73-year-old male coronary artery disease status post 4 vessel bypass in 2012, hypertension, hyperlipidemia, carotid artery disease, and abdominal aortic aneurysm who presented to the emergency department for evaluation chest pain. The patient provides the following history. He gives a 1 week history of chest discomfort that seems to only occur at nighttime. It tends to wake him from sleep at around 03:00. He describes an aching discomfort which originates in the mid anterior chest and radiates to the neck, jaws, and bilateral upper arms. He sits up at the side of the bed for about 30 minutes and symptoms resolved. He has no associated symptoms. It is not similar to the discomfort he was having prior to his bypass surgery and it is not at all similar to the symptoms he has with indigestion. Initially he thought he had strained a muscle from working out on his BowFlex machine. He is still able to do cardio on his elliptical 20 minutes a day and has not had any chest pain with that. He denies syncope, near syncope, exertional chest pain, pleuritic pain, orthopnea, paroxysmal nocturnal dyspnea, lower extremity edema, calf pain, nausea, vomiting, and sweats. In the ED: Blood pressure was 168/74 on arrival. Labs were reviewed and they are pretty unremarkable and stable with a BUN and creatinine near his baseline. Initial troponin was 0.104. EKG showed sinus rhythm with PVCs and ST T-wave abnormalities in the inferolateral leads. Chest CTA was negative for pulmonary embolism. He received aspirin 324 mg and has been started on a heparin drip given his cardiac history. He is being admitted in this setting to IMU for close monitoring and Cardiology consultation. Review of Systems Review of Systems: 12 systems were reviewed and are negative except for as per HPI. [facility] [place] Past Medical History Medical History (Updated 08/17/23 @ 13:05 by Bella Brock PA-C) Abdominal aortic aneurysm without rupture Chronic kidney disease, stage 3 Chronic low back pain Coronary artery disease COVID-19 (04/2020) Dyslipidemia History of tobacco abuse Hypertension Multinodular goiter Peripheral arterial disease Prediabetes Stenosis of right carotid artery Surgical History Surgical History (Updated 08/17/23 @ 13:10 by Bella Brock PA-C) History of arthroscopy of right knee History of cardiac catheterization History of coronary artery bypass graft (05/02/12) GUERIN to LAD, SVG to RPDA, SVG to diagonal, radial to OM History of inguinal hernia repair History of wisdom tooth extraction Family History Family History Father Family history of alcoholism Other Family history of lung cancer Social History Social History (Updated 08/17/23 @ 20:56 by Bella Brock PA-C) Social History: Surrogate medical decision maker: Heron Ramirez, migue. Code status: Full code. Smoking packs per day: 2 Smoking cigarettes per day: 40.0 Years smoked: 30 Smoking pack-years: 60.00 Smoking status: Former smoker Smoking end date: 04/27/12 Alcohol intake: never Alcohol use details: consumes 1 beer every couple months Substance use: current Substance use type: marijuana Last use: 08/16/23 Do You Feel Safe in your Home?: Yes Lack of Transportation: No Lack of Food: Never True Current Housing: I Have Housing Concerned About Future Housing: No Difficulty Paying Gas/Electric Bills: No Difficulty Paying for Meds: No Currently Unemployed: No Education: Bachelor's Degree Difficulty w/ Childcare or Family Care: No Living arrangements: alone Additional living arrangements comments: The patient lives alone in [place] with his dog. 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
[2023-08-17 13:07] LABS: LDL Cholesterol Direct 63 mg/dL
[2023-08-17 13:35] LABS: Troponin I 0.134 ng/mL (0.000-0.034)
[2023-08-17] MEDS: RANOLAZINE 500 MG TAB.ER.12H PO (20:14)
[2023-08-17] MEDS: MORPHINE SULFATE (*CRX) 2 MG/ML INJ IV PUSH (23:58)
[2023-08-18] VITALS (11 sets, daily range): BP systolic 144–150; BP diastolic 60–80; PULSE 53–66; RESP 18–21; TEMP 36.1–36.7; O2SAT 95–100
[2023-08-18 04:28] LABS: Basophils Percent Auto 0.5 % (0.2-1.2); Eosinophils Absolute Auto 0.2 K/mm3 (0-0.3); Eosinophils Percent Auto 2.9 % (0-4.4); Hematocrit 45.2 % (42.0-52.0); Hemoglobin 14.4 g/dL (14.0-18.0); Immature Granulocyte Absolute 0.02 K/mm3 (0.00-0.031); Immature Granulocyte Percent A 0.3 % (0-0.5); Lymphocytes Absolute Auto 1.74 K/mm3 (0.9-3.2); Lymphocytes Percent Auto 23.7 % (18.3-44.2); Mean Corpuscular HGB Conc 31.9 g/dl (32-36); Mean Corpuscular Hemoglobin 30.4 pg (26-34); Mean Corpuscular Volume 95.6 fl (80-100); Mean Platelet Volume 10.6 fl (7.4-10.4); Monocytes Absolute Auto 0.7 K/mm3 (0.1-0.6); Monocytes Percent Auto 10.1 % (2.6-8.5); Neutrophils Absolute Auto 4.6 K/mm3 (1.3-6.7); Neutrophils Percent Auto 62.5 % (45.5-73.1); Platelet Count Result 194 k/mm3 (150-375); Red Blood Count 4.73 M/mm3 (4.6-6.20); Red Cell Distribution Width 13.1 % (11.5-14.5); White Blood Count 7.4 K/mm3 (4.5-10.0)
[2023-08-18 04:46] LABS: Anion Gap 7 mmol/L (4-12); Blood Urea Nitrogen 28 mg/dL (9-20); Calcium 9.8 mg/dL (8.4-10.2); Carbon Dioxide 23 mmol/L (22-30); Chloride 108 mmol/L (98-107); Estimated CRCL calculation 44 ml/min; Estimated Glomerular Filt Rate 50; Glucose 107 mg/dL (65-110); Magnesium 1.5 mg/dL (1.6-2.3); Potassium 4.2 mmol/L (3.4-5.0); Sodium 138 mmol/L (137-145)
--- NOTE | 2023-08-18 08:00 | EST_ITS ---
Patient Info Name: Chance Ramirez Age: 73 years : 1950 Gender: Male Ht: 70 in Wt: 187 lbs BSA: 2.06 m2 HR: 54 bpm BP: 170 / 81 mmHg Heart Rhythm: Sinus Rhythm Exam Date: 08/18/2023 11:33 AM Exam Location: Echo Lab Patient Status: Outpatient Admit Date: 08/17/2023 Staff Ordering Physician: Nic Esquivel MD Attending Provider: Joseph Khalil MD Exercise Technologist: Leatha Radford CT Exercise Physician: Kit Garvin MD Exam Type: CA stress smooth w NM Study Info Indications R07.89 - Other chest pain A regadenoson stress test was performed. Summary 1. Please correlate with nuclear medicine images, reported separately. 2. Abnormal ST segment depression consistent with myocardial ischemia. Protocol: Lexiscan Stress ECG Details Stage: REST Duration (min): 2 min : 7 sec HR (bpm): 54 SBP (mmHg): 170 DBP (mmHg): 81 Stage: REST Duration (min): 9 min : 12 sec HR (bpm): 54 SBP (mmHg): 170 DBP (mmHg): 81 Stage: STAGE 1 Duration (min): 1 min : 0 sec HR (bpm): 59 SBP (mmHg): 164 DBP (mmHg): 89 Stage: RECOVERY Duration (min): 1 min : 0 sec HR (bpm): 66 SBP (mmHg): 164 DBP (mmHg): 89 Stage: RECOVERY Duration (min): 2 min : 0 sec HR (bpm): 63 SBP (mmHg): 164 DBP (mmHg): 89 Stage: RECOVERY Duration (min): 3 min : 0 sec HR (bpm): 62 SBP (mmHg): 148 DBP (mmHg): 80 Stage: RECOVERY Duration (min): 3 min : 10 sec HR (bpm): 61 SBP (mmHg): 148 DBP (mmHg): 80 Rest HR: 54 bpm Peak HR: 66 bpm Rest Sys BP: 170 mmHg Peak Sys BP: 164 mmHg Max Pred HR: 147 bpm % Max Pred HR: 45 % Target HR: 125 bpm Max RPP: 10,824 bpm*mmHg BP Response: Normal blood pressure response Termination Reason: Completed protocol Cardiac Symptoms: Dyspnea Total Time: 1 min : 0 sec Rest [place] BP: 81 mmHg Peak [place] BP: 89 mmHg Total Dose: 0.4 mg Resting ECG Normal sinus rhythm. Inferior and lateral ST abnormalities consistent with ischemia. Stress ECG Exaggeration of the baseline ST abnormality. Greater than 1 mm of horizontal or downsloping ST depression - inferolateral leads. Arrhythmias Occasional PVCs. Occasional PACs. Report Signatures
[2023-08-18] MEDS: ATORVASTATIN 40 MG TABLET 80 MG PO (09:20)
[2023-08-18] MEDS: lisinopriL 20 MG TABLET PO (09:20)
[2023-08-18] MEDS: METOPROLOL SUCCINATE EXT REL 100 MG TABCR PO (09:20)
[2023-08-18] MEDS: hydroCHLOROthiazide 12.5 MG CAPSULE PO (09:20)
[2023-08-18] MEDS: MAGNESIUM SULF 1 GM/D5W 100 ML 1 GM/100 ML BAG IVPB (09:20)
[2023-08-18] MEDS: ASPIRIN 81 MG ENTERIC TABLET PO (09:20)
[2023-08-18] MEDS: ISOSORBIDE MONONITRATE 60 MG TAB.ER.24H PO (09:20)
[2023-08-18] MEDS: RANOLAZINE 500 MG TAB.ER.12H PO (09:20)
[2023-08-18] MEDS: ACETAMINOPHEN 325 MG TABLET 650 MG PO (09:28)
--- NOTE | 2023-08-18 09:54 | PM.PNCARD ---
Progress Note: A&P Assessment and Plan (1) Chest pain: Code(s): R07.9 - Chest pain, unspecified Status: Acute Assessment and Plan: His chest pain is atypical -- only occurs when laying down at night, no association with exertion. Troponins are mildly elevated but flat thus far -- no prior baseline level for comparison; does have CKD. Heparin DC. Lexiscan pending. Chest pain is concerning actually for thoracic spine or GI in etiology and less likely to be cardiac (2) Elevated troponin: Code(s): R79.89 - Other specified abnormal findings of blood chemistry Status: Acute Assessment and Plan: As above. (3) CAD in [place] artery: Code(s): I25.10 - Atherosclerotic heart disease of [place] coronary artery without angina pectoris Status: Acute Assessment and Plan: Continue ASA, statin, home antianginal regimen including Ranexa. (4) Essential (primary) hypertension: Code(s): I10 - Essential (primary) hypertension Status: Acute Assessment and Plan: Stable, continue home antihypertensives (5) CKD (chronic kidney disease) stage 3, GFR 30-59 ml/min: Qualifiers: Chronic kidney disease stage 3 subtype: stage 3a (GFR 45-59) Qualified Code(s): N18.31 - Chronic kidney disease, stage 3a Code(s): N18.3 - Chronic kidney disease, stage 3 (moderate) Status: Acute Assessment and Plan: At baseline. (6) Dyslipidemia: Code(s): E78.5 - Hyperlipidemia, unspecified Status: Acute Assessment and Plan: Continue high intensity statin. (7) Hx of CABG: Code(s): Z95.1 - Presence of aortocoronary bypass graft Status: Acute Assessment and Plan: As above. (8) AAA (abdominal aortic aneurysm) without rupture: Qualifiers: Abdominal aorta location: infrarenal aorta Qualified Code(s): I71.43 - Infrarenal abdominal aortic aneurysm, without rupture Code(s): I71.4 - Abdominal aortic aneurysm, without rupture Status: Acute Assessment and Plan: Stable. Continue ASA, statin, aggressive risk factor modification. Follows with Vascular Surgery as an outpatient. (9) Peripheral arterial disease: Code(s): I73.9 - Peripheral vascular disease, unspecified Status: Acute Assessment and Plan: Stable. Continue ASA, statin, aggressive risk factor modification. Follows with Vascular Surgery as an outpatient. (10) Hypomagnesemia: Code(s): E83.42 - Hypomagnesemia Status: Acute Assessment and Plan: He has received 1 g of IV magnesium. Magnesium is 1.5. Will give him an additional 2 g of magnesium. Subjective Date/time seen: 08/18/23 09:54 Interval history: 73-year-old with known CAD and history of CABG who presented the hospital with atypical chest pain predominantly worsened her lying down. Started after using a Bowflex for exercise Date of service 08/18/2023: Still having episodes of chest pain when lying down. No shortness of breath. No swelling Review of Systems Constitutional: Constitutional: Denies body ache(s) ENT: Reports Normal hearing present Cardiovascular: Cardiovascular: Reports chest pain Respiratory: Respiratory: Denies dyspnea Gastrointestinal: Gastrointestinal: Denies abdominal pain Psychiatric: Psychiatric: Denies behavioral changes Exam Const: General: comfortable and no acute distress HENMT: Face/Nose/Sinus: Normal nares present Mouth: Yes moist mucous membranes Eyes: General: appearance normal, both eyes and all related structures Sclera: sclerae normal Neck: Neck: supple and no JVD Chest: Other: No reproducible chest wall tenderness Resp: Effort & Inspection: normal respiratory effort Auscultation: clear to auscultation bilaterally Cardio: Rate: regular rate Rhythm: regular rhythm Heart sounds: no murmurs GI: Inspection: non-distended GI Palp: Yes Soft to palpation Skin: General skin exa
[2023-08-18] MEDS: MAGNESIUM SULF 2 GM/WATER 50ML 2 GM/50 ML BAG IVPB (12:44)
--- NOTE | 2023-08-18 15:10 | PC.NURSE ---
patient removed heart monitor. States he is leaving.
--- NOTE | 2023-08-18 15:15 | PM.DS ---
DS: Admitting Diagnosis Discharge Date 08/18/2023 Admitting Diagnosis Chest pain DS: Discharge Diagnosis Discharge Diagnosis (1) Chronic kidney disease, stage 3: Code(s): N18.30 - Chronic kidney disease, stage 3 unspecified Status: Acute (2) Coronary artery disease: Code(s): I25.10 - Atherosclerotic heart disease of [place] coronary artery without angina pectoris Status: Acute (3) Chest pain: Code(s): R07.9 - Chest pain, unspecified Status: Acute DS: Summary Hospital Course Hospital Course: 73-year-old male past medical history CAD status post CABG in 2012, peripheral vascular disease, carotid artery disease, hypertension, abdominal aortic aneurysm, CTA in 2019 demonstrating 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 It is aching/burning discomfort. Follows with the [facility] group of [place]. 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 Cardiology consultation completed, recommended medical management. And patient stable for discharge to home on 08/18/2023. Advised him to follow-up with cardiology. Advised the patient follow-up with his primary care to evaluate for other causes of chest pain. He believes it is not related to acid reflux as he had that before and does not want to start PPI. This pain at started after some intense exercise. Advised patient to rest and use acetaminophen as needed. CTA chest negative for PE. Time Spent with Patient Time attestation: Total time spent providing and/or coordinating discharge services: Exam Const: General: comfortable and no acute distress Eyes: Pupils: Equal, round and reactive pupils present Neck: Neck: supple Resp: Effort & Inspection: normal respiratory effort Auscultation: clear to auscultation bilaterally Cardio: Rate: regular rate Rhythm: regular rhythm GI: GI Palp: Yes Soft to palpation and No Tenderness to palpation present (GI) Extrem: General: no edema DS: Data Data Completed and Pending Labs on day of discharge: Labs from last 24 hours 08/18/23 03:54 WBC 7.4 RBC 4.73 Hgb 14.4 Hct 45.2 MCV 95.6 MCH 30.4 MCHC 31.9 L RDW 13.1 Plt Count 194 MPV 10.6 H Immature Gran % (Auto) 0.3 Neut % (Auto) 62.5 Lymph % (Auto) 23.7 [place] % (Auto) 10.1 H Eos % (Auto) 2.9 Baso % (Auto) 0.5 Lymph # (Auto) 1.74 [place] # (Auto) 0.7 H Eos # (Auto) 0.2 Baso # (Auto) 0.0 Abs Immat Gran (auto) 0.02 Absolute Neuts (auto) 4.6 Absolute Nucleated RBC 0.000 Nucleated RBC % 0.0 Sodium 138 Potassium 4.2 Chloride 108 H Carbon Dioxide 23 Anion Gap 7 BUN 28 H Creatinine 1.40 H Estim Creat Clear Calc 44 Estimated GFR 50 L Glucose 107 Calcium 9.8 Magnesium 1.5 L Discharge Plan Discharge Attending physician on discharge: Amira Marin Consulting providers: Nic Esquivel Discharging Clinician: Amira Marin Patient Disposition: Home, Self-Care Activity: july shower Diet: as tolerated Stand Alone Forms: General Discharge Information Follow-up/Referrals: Kit Garvin MD [Physician] - 2 Weeks Renetta Mata MD [Primary Care Provider] - 1 Week Discharge Medications: Continued aspirin [Enteric Coated Aspirin] 81 mg tablet,delayed release (DR/EC) 81 mg PO DAILY isosorbide mononitrate 60 mg tablet extended release 24 hr 60 mg PO DAILY ranolazine 500 mg tablet extended release 12 hr 500 mg PO Q12H metoprolol succinate 100 mg tablet extended release 24 hr 100 mg PO DAILY Qty: 90 1RF atorvastatin 80 mg tablet 80 mg PO DAILY lisinopril-hydrochlorothiazide 20-12.5 mg tablet 1 tablet PO DAILY Qty: 9
== END 2023-08-18 15:25 | disposition home or self-care (01) ==
LOC: ANHED 10:01 → ANHIMU 10:36
PROVIDERS: Internal Medicine; Physician Assistant; Student in an Organized Health Care Education/Training Program; Admitting Provider Internal Medicine; Emergency Provider Emergency Medicine; PCP Family Medicine; Visit Provider General Practice
DX: R07.9 Chest pain, unspecified (principal); R79.89 Other specified abnormal findings of blood chemistry; E83.42 Hypomagnesemia; I12.9 Hypertensive chronic kidney disease with stage 1 through stage 4 chronic kidney disease, or unspecified chronic kidney disease; N18.31 Chronic kidney disease, stage 3a; I25.10 Atherosclerotic heart disease of native coronary artery without angina pectoris; I71.43 Infrarenal abdominal aortic aneurysm, without rupture; E78.5 Hyperlipidemia, unspecified; I73.9 Peripheral vascular disease, unspecified; Z79.82 Long term (current) use of aspirin; Z95.1 Presence of aortocoronary bypass graft; Z87.891 Personal history of nicotine dependence; F12.90 Cannabis use, unspecified, uncomplicated
CPT/HCPCS: 36415; 71046; 71275; 74177; 78452; 80048; 80053; 80061; 83690; 83735; 84484; 85025; 85610; 85730; 93005; 93017; 94762; 96374; 96375; 96376; 99285; A9270; A9502; C9113; G0378; J1644; J2270; J2785; J3475; Q9967

== ENCOUNTER 2024-04-20 08:45 | Outpatient (RCR) | payer MEDICARE, SELFPAY ==
[2023-12-24 08:37] VITALS: PULSE 63
== END 2024-04-20 23:59 | disposition home or self-care (01) ==
LOC: ANHCPREHAB 08:45
PROVIDERS: PCP Family Medicine; Visit Provider Internal Medicine Cardiovascular Disease
DX: Z95.5 Presence of coronary angioplasty implant and graft (principal)
CPT/HCPCS: 93798

== ENCOUNTER 2024-05-11 08:45 | Outpatient (RCR) | payer MEDICARE, SELFPAY ==
[2024-04-23 00:02] VITALS: PULSE 63
== END 2024-05-11 09:50 | disposition home or self-care (01) ==
LOC: ANHCPREHAB 08:45
PROVIDERS: PCP Family Medicine; Visit Provider Internal Medicine Cardiovascular Disease
DX: Z95.5 Presence of coronary angioplasty implant and graft (principal)
CPT/HCPCS: 93798

== ENCOUNTER 2024-09-29 08:32 | Outpatient (CLI) | payer MEDICARE, SELFPAY ==
--- NOTE | ~2024-09-29 | MR_ITS ---
MRI of the lumbar spine Clinical History: Spondylosis Technique: Axial T2-weighted images, and sagittal T1-weighted, T2-weighted, and T2 fat-sat images wer e acquired. Findings: There is no acute fracture or subluxation lumbar spine. Osseous alignment is stable from pr ior exam. There are extensive Modic type I signal changes about the L2-L3 disc space in particular. At L1-L2, there is severe degenerative disc narrowing. There is disc bulge and moderate to severe fac et arthropathy. There is severe spinal canal stenosis/thecal sac compression and severe bilateral jacek ral foraminal comprise. At L2-L3, there is severe degenerative disc narrowing. No disc bulge and severe facet arthropathy res ults in moderate to severe spinal canal stenosis/thecal sac compression. There is severe bilateral ne ural foraminal contrast, right worse than left. At L3-L4, there is advanced degenerative disc narrowing. Disc bulge and severe facet arthropathy resu lt in severe spinal canal stenosis/thecal sac compression. There is severe bilateral neural foraminal compress, right worse than left. At L4-L5, there is severe degenerative disc narrowing. Diffuse disc bulge and severe facet arthropath y result in severe spinal canal stenosis/thecal sac compression. There is severe bilateral neural for aminal comprise, right worse than left. At L5-S1, there is mild disc bulge with severe facet arthropathy, especially in the right side. No ce ntral canal stenosis. There is moderate to severe right neural foraminal narrowing. Left neural lucy en preserved. Paravertebral soft tissues are unremarkable. Impression: Severe degenerative spondylosis throughout the lumbar spine, with multilevel severe spinal canal sten osis and multilevel neural foraminal narrowing. Please see details above. Reviewed, dictated and finalized at location M. Impression: Severe degenerative spondylosis throughout the lumbar spine, with multilevel se navid spinal canal stenosis and multilevel neural foraminal narrowing. Please se e details above.
== END 2024-09-29 08:33 | disposition home or self-care (01) ==
LOC: MICIMG 08:33
PROVIDERS: PCP Family Medicine; Visit Provider Nurse Practitioner Family
DX: M47.816 Spondylosis without myelopathy or radiculopathy, lumbar region (principal); M51.369 Other intervertebral disc degeneration, lumbar region without mention of lumbar back pain or lower extremity pain; M48.061 Spinal stenosis, lumbar region without neurogenic claudication; M48.07 Spinal stenosis, lumbosacral region
CPT/HCPCS: 72148

== ENCOUNTER 2025-02-27 11:36 | Outpatient (CLI) | payer MEDICARE, SELFPAY ==
--- NOTE | ~2025-02-27 | XR_ITS ---
EXAMINATION: XR knee RT min 4V, 02/27/2025 11:55 RECONSTRUCTIVE DENTIST HISTORY: Pain in right knee, fell last week on ice and hurt knee COMPARISON: No comparisons available. Findings: No acute fracture or malalignment. Moderate to severe tricompartmental degenerative changes with small effusions Soft tissues unremarkable. Impression: No acute fracture or malalignment. Reviewed, dictated and finalized at location P. NSTRUCTIVE DENTIST Impression: No acute fracture or malalignment.
== END 2025-02-27 11:37 | disposition home or self-care (01) ==
LOC: GOSHIMG 11:37
PROVIDERS: PCP Family Medicine; Visit Provider Family Medicine
DX: M17.11 Unilateral primary osteoarthritis, right knee (principal); W00.0XXA Fall on same level due to ice and snow, initial encounter; Z91.81 History of falling
CPT/HCPCS: 73564